=== PATIENT | female | born 1960 ===

== ENCOUNTER → 2021-01-22 10:13 | Outpatient (CLI) | payer OTHER | END | disposition home or self-care (01) | LOC: PPH VACUNA 10:13 | DX: Z23 Encounter for immunization (principal) ==

== ENCOUNTER 2021-08-20 08:00 | Outpatient (CLI) | payer OTHER | END 2021-08-20 08:30 | disposition home or self-care (01) | LOC: PPH VACUNA 08:00 | PROVIDERS: ATTEND Emergency Medicine Pediatric Emergency Medicine | DX: Z23 Encounter for immunization (principal) ==